=== PATIENT | male | born 2000 | race African-American/Black ===

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

== ENCOUNTER 2022-04-06 16:24 | Emergency (ER) | payer OTHER ==
[2022-04-06] MEDS ORDERED: ALBUTEROL 2.5 MG/3 ML NEB SOL ONE (16:41)
[2022-04-06 17:48] LABS: SARS-COV-2 RT PCR NEGATIVE (NEGATIVE)
--- NOTE | 2022-04-06 18:21 | RAD REPORT ---
EXAM DESCRIPTION: Benjie Single View04/06/2022 5:39 pm CLINICAL HISTORY: sob COMPARISON: 2020 FINDINGS: The lungs appear clear of acute infiltrate. The heart is normal size IMPRESSION: No acute abnormalities displayed
--- NOTE | 2022-04-06 18:24 | EDPHYS ---
Physician Documentation [facility] Name: Diana Schwartz Age: 21 yrs Sex: Male : 2000 Arrival Date: 04/06/2022 Time: 16:28 Bed 14 Private MD: ED Physician Te Boothe HPI: 04/06 16:37 This 21 yrs old Black Male presents to ER via Ambulatory with complaints of Cough, jh7 Congestion, Fever. 16:37 The patient or guardian reports cough, described as moderate, difficulty breathing, flu jh7 symptoms, low-grade fever, myalgias. Onset: The symptoms/episode began/occurred 3 day(s) ago. Associated signs and symptoms: Pertinent positives: fever, rhinorrhea, wheezing, Pertinent negatives: chest pain, sore throat, vomiting. Historical: - Allergies: 16:32 No Known Allergies; hb - Immunization history:: Adult Immunizations up to date. - Social history:: Smoking status: Patient denies any tobacco usage or history of. ROS: 16:37 Constitutional: Negative for fever, chills, and weight loss, Eyes: Negative for injury, jh7 pain, redness, and discharge, Neck: Negative for injury, pain, and swelling, Cardiovascular: Negative for chest pain, palpitations, and edema, Abdomen/GI: Negative for abdominal pain, nausea, vomiting, diarrhea, and constipation, Back: Negative for injury and pain, MS/Extremity: Negative for injury and deformity, Skin: Negative for injury, rash, and discoloration, Neuro: Negative for headache, weakness, numbness, tingling, and seizure. 16:37 ENT: Positive for sinus congestion, Negative for sore throat. 16:37 Respiratory: Positive for cough, shortness of breath, wheezing, inspiratory, expiratory. 16:37 All other systems are negative. Exam: 16:37 Constitutional: This is a well developed, well nourished patient who is awake, alert, jh7 and in no acute distress. Head/Face: Normocephalic, atraumatic. Eyes: Pupils equal round and reactive to light, extra-ocular motions intact. Lids and lashes normal. Conjunctiva and sclera are non-icteric and not injected. Cornea within normal limits. Periorbital areas with no swelling, redness, or edema. Cardiovascular: Regular rate and rhythm with a normal S1 and S2. No gallops, murmurs, or rubs. Normal PMI, no JVD. No pulse deficits. Abdomen/GI: Soft, non-tender, with normal bowel sounds. No distension or tympany. No guarding or rebound. No evidence of tenderness throughout. Back: No spinal tenderness. No costovertebral tenderness. Full range of motion. Skin: Warm, dry with normal turgor. Normal color with no rashes, no lesions, and no evidence of cellulitis. MS/ Extremity: Pulses equal, no cyanosis. Neurovascular intact. Full, normal range of motion. Neuro: Awake and alert, GCS 15, oriented to person, place, time, and situation. Motor strength 5/5 in all extremities. Sensory grossly intact. Normal gait. 16:37 ENT: Nose: nasal drainage, and is seen coming from both nares, that is clear. 16:37 Respiratory: the patient does not display signs of respiratory distress, Respirations: normal, Breath sounds: rhonchi, are heard diffusely, wheezing: is heard diffusely, Respiratory rate: 20 Vital Signs: 16:31 BP 158 / 75; Pulse 69; Resp 20; Temp 98.7(TE); Pulse Ox 100% ; Weight 145.15 kg; Height hb 6 ft. (182.88 cm); Pain 7/10; 16:35 BP 145 / 71; Pulse 72; Pulse Ox 99% on R/A; ko1 16:31 Body Mass Index 43.40 (145.15 kg, 182.88 cm) hb MDM: 16:30 Patient medically screened. [facility] 18:26 Differential Diagnosis: Bronchitis Influenza Pharyngitis Allergic Rhinitis Asthma [facility] Exacerbation Viral Syndrome Pneumonia. Data reviewed: vital signs, nurses notes, radiologic studies, plain films. Data interpreted: Pulse oximetry: is 100 %. Interpretation: normal. Counseling: I had a detailed discussion with the patient and/or guardian regarding: the historical points, exam findings, and any diagnostic results supporting the discharge/admit diagnosis, to return to the emergency department if symptoms worsen or persist or if there are any questions or concerns that arise at home. 04/06 16:36 Order name: COVID-19/FLU A+B; Complete Time: 17:50 [facility] 04/06 16:36 Order name: XRAY Chest (1 view); Complete Time: 18:23 [facility] Administered Medications: 16:49 Drug: Albuterol 2.5 mg Route: Inhalation; ko1 17:11 Drug: Albuterol 2.5 mg Route: Inhalation; ko1 17:36 Drug: Albuterol 2.5 mg Route: Inhalation; ko1 Disposition: 19:24 Co-signature as Attending Physician, Te Boothe MD I agree with the assessment and rt plan of care. Disposition Summary: 04/06/22 18:23 Discharge Ordered Location: Home [facility] Problem: new [facility] Symptoms: have improved [facility] Condition: Stable [facility] Diagnosis - Acute upper respiratory infection, unspecified [facility] Followup: [facility] - With: Private Physician - When: 2 - 3 days - Reason: Recheck today's complaints Discharge Instructions: - Discharge Summary Sheet [facility] - Upper Respiratory Infection, Adult [facility] - Viral Respiratory Infection [facility] Forms: - Medication Reconciliation Form [facility] - Thank You Letter [facility] Prescriptions: - Bromfed DM 2-30-10 mg/5 mL Oral syrup - take 10 milliliter by ORAL route every 4 hours As needed; 240 milliliter; [facility] Refills: 0, Product Selection Permitted - ProAir HFA 90 mcg/actuation Inhalation HFA aerosol inhaler - inhale 2 puff by INHALATION route every 4-6 hours As needed; 1 Inhaler; [facility] Refills: 0, Product Selection Permitted Signatures: Dispatcher [employer] Asiya Marques, RN CIRILO Samia Skaggs, [employer] [facility] Renetta Wilson RN RN ko1 Te Boothe MD MD rt
--- NOTE | 2022-04-06 18:24 | ER ---
Nurse's Notes [facility] Name: Diana Schwartz Age: 21 yrs Sex: Male : 2000 Arrival Date: 04/06/2022 Time: 16:28 Bed 14 Private MD: Diagnosis: Acute upper respiratory infection, unspecified Presentation: 04/06 16:31 Chief complaint: SOB, cough, congestion, nausea, and pain with breathing x 3 days. hb Coronavirus screen: Client presents with at least one sign or symptom that may indicate coronavirus-19. Standard/surgical mask placed on the client. Provider contacted for isolation considerations. Ebola Screen: No symptoms or risks identified at this time. Initial Sepsis Screen: Does the patient meet any 2 criteria? No. Patient's initial sepsis screen is negative. Does the patient have a suspected source of infection? No. Patient's initial sepsis screen is negative. Risk Assessment: Do you want to hurt yourself or someone else? Patient reports no desire to harm self or others. Onset of symptoms was April 03, 2022. 16:31 Method Of Arrival: Ambulatory 16:31 Acuity: ASPEN 4 hb Historical: - Allergies: 16:32 No Known Allergies; hb - Immunization history:: Adult Immunizations up to date. - Social history:: Smoking status: Patient denies any tobacco usage or history of. Screenin:35 Abuse screen: Denies threats or abuse. Denies injuries from another. ko1 16:35 Nutritional screening: No deficits noted. Tuberculosis screening: No symptoms or risk ko1 factors identified. Fall Risk None identified. Assessment: 16:35 General: Appears in no apparent distress. comfortable, Behavior is calm, cooperative, ko1 appropriate for age. Pain: Denies pain. Neuro: No deficits noted. Cardiovascular: Patient's skin is warm and dry. Respiratory: Respiratory effort is even, unlabored, Breath sounds with wheezes bilaterally. GI: No deficits noted. : No deficits noted. EENT: Reports nasal congestion. Derm: No deficits noted. Musculoskeletal: No deficits noted. Vital Signs: 16:31 BP 158 / 75; Pulse 69; Resp 20; Temp 98.7(TE); Pulse Ox 100% ; Weight 145.15 kg; Height hb 6 ft. (182.88 cm); Pain 7/10; 16:35 BP 145 / 71; Pulse 72; Pulse Ox 99% on R/A; ko1 16:31 Body Mass Index 43.40 (145.15 kg, 182.88 cm) ED Course: 16:28 Patient arrived in ED. rg4 16:29 Samia Skaggs FNP is [facility] 7 16:29 Te Boothe MD is Attending Physician. jh7 16:32 Triage completed. hb 16:35 No provider procedures requiring assistance completed. Patient did not have IV access ko1 during this emergency room visit. 16:35 Patient has correct armband on for positive identification. Placed in gown. Bed in low ko1 position. Call light in reach. Side rails up X 1. Pulse ox on. NIBP on. Door closed. Noise minimized. 16:35 Arm band placed on right wrist. ko1 16:38 Renetta Wilson, RN is Primary Nurse. ko1 16:49 COVID-19/FLU A+B Sent. ko1 17:41 XRAY Chest (1 view) In Process Unspecified. EDMS Administered Medications: 16:49 Drug: Albuterol 2.5 mg Route: Inhalation; ko1 17:11 Drug: Albuterol 2.5 mg Route: Inhalation; ko1 17:36 Drug: Albuterol 2.5 mg Route: Inhalation; ko1 Medication: 16:35 VIS not applicable for this client. ko1 Outcome: 18:23 Discharge ordered by . [facility] 18:42 Discharged to home ambulatory, with family. ko1 18:42 Condition: good 18:42 Discharge instructions given to patient, family, Instructed on discharge instructions, follow up and referral plans. medication usage, Demonstrated understanding of instructions, follow-up care, medications, Prescriptions given X 2. 18:43 Patient left the ED. ko1 Signatures: Dispatcher [employer] EDMS Asiya Bains RN RN Vicky Cooper 4 Samia Skaggs FNP [place] [id number] Renetta Wilson, CIRILO RN ko1 Corrections: (The following items were deleted from the chart) 18:42 15:00 Abuse screen: Denies threats or abuse. Denies injuries from another. ko1 ko1
[2022-04-06 19:07] VITALS: TEMP 98.7
[2022-04-06 19:08] VITALS: BP 145/71; O2SAT 99
== END 2022-04-06 18:43 | disposition home or self-care (01) ==
LOC: ER 16:24
DX: J06.9 Acute upper respiratory infection, unspecified (principal); Z20.822 Contact with and (suspected) exposure to COVID-19
CPT/HCPCS: 0240U; 71045; 99284; J7613

== ENCOUNTER 2024-05-26 17:10 | Emergency (ER) | payer OTHER, SELFPAY ==
--- OUTSIDE RECORDS SUMMARY | 2024-05-26 17:14 | XMS REPORT | Continuity of Care Document ---
Author Name Unknown Address [address] [facility] [address] [place] [address] [facility] thconnect Address [address] [place] [address] Care Team Providers Care Marine Insulator Name Role Phone PCP, PATIENT DOES NOT HAVE A Primary Care Physic malina Unavailable ALVIN KINSEY Attending Clinician Unavailable ALVIN KINSEY Attending Clinician Unavailable Alvin Oleary Attending Clinician [phone] DANA REZA Attending Clinician Unavailab Dana Mendoza DO Attending Clinician [phone] Allergies, Adverse Reactions, Alerts Allergy Name Allergy Type Status Severity Reaction(s) Onset Date Inactive Date Treating Clinician Comments Source NO KNOWN ALLERGIE S Drug Class Active [facility] Social History Social Habit Start Date Stop Date Quantity Comments Source Sexual orientation [facility] Sex assigned at 2000 00:00:00 2000 00:00:00 [facility] Smoking Status Start Date Stop Date Source Tobacco smoking consumption unknown [facility] Medications Ordered Medication Name Filled Medication Name Start Date Stop Date Current Medication? Ordering Clinician Indication Dosage Frequency Signature (SIG) Comments Components Source dexamethaso ne sod phos PF injection 10 mg 12-23 02:15: 00 12-23 02:19 :00 No 10mg 10 mg, Intramuscu lar, ONCE, 1 dose, On Fri12/23/23 at 2115, 1 mL [facility] ibuprofen (IBU) tablet 800 mg 12-23 02:15: 00 12-23 02:19 :00 No 800mg 800 mg, Oral, ONCE, 1 dose, On Fri12/23/23 at 2115, JUANA [facility] ondansetron 4 mg disintegrat ing tablet 12-22 00:00: 00 Yes [id number] 4mg Take 1 tablet by mouth every 8 (eight) hours as needed for Nausea and Vomiting (N/V). [facility] ibuprofen 800 mg tablet 12-22 00:00: 00 Yes [id number] 800mg Take 1 tablet by mouth 3 (three) times daily as needed for Pain (scale 4-6). [facility] albuterol 90 mcg/actuati on inhaler 09-17 00:00: 00 Yes [id number] 2{puff} Inhale 2 Puffs every 4 (four) hours as needed for Wheezing or Shortness of Breath. [facility] Vital Signs Vital Name Observation Time Observation Value Comments S ource Systolic blood pressure 2023-12-24 03:34:00 142 mm[Hg] [facility] Diastolic blood pressure 2023-12-24 03:34:00 83 mm[Hg] [facility] Body temperature 2023-12-24 03:34:00 36.67 Lora [facility] Respiratory rate 2023-12-24 03:34:00 15 /min [facility] Oxygen saturation in Arterial blood by Pulse oximetry 2023-12-24 03:34:00 100 /min [facility] Heart rate 2023-12-24 01:58:00 91 /min [facility] Body height 2023-12-24 01:58:00 182.9 cm [facility] Body weight 2023-12-24 01:58:00 169.192 kg [facility] BMI 2023-12-24 01:58:00 50.59 kg/m2 [facility] Systolic blood pressure 2023-09-18 16:49:00 123 mm[Hg] [facility] Diastolic blood pressure 2023-09-18 16:49:00 70 mm[Hg] [facility] Heart rate 2023-09-18 16:49:00 77 /min [facility] Body temperature 2023-09-18 16:49:00 36.89 Lora [facility] Respiratory rate 2023-09-18 16:49:00 16 /min [facility] Body height 2023-09-18 16:49:00 182.9 cm [facility] Body weight 2023-09-18 16:49:00 158.759 kg [facility] BMI 2023-09-18 16:49:00 47.47 kg/m2 [facility] Oxygen saturation in Arterial blood by Pulse oximetry 2023-09-18 16:49:00 100 /min [facility] Procedures Procedure Date / Time Performed Performing Clinicia n Source RAPID STREP SCREEN FOR GROUP A 2023-12-24 02:24:00 Alvin Kinsey [facility] INFLUENZA A/B RSV COVID NAAT 2023-12-24 02:24:00 Alvin Kinsey [facility] Encounters Start Date/Time End Date/Time Encounter Type Admission Type Attending Clinicians Care Facility Care Department Encounter ID Source 2023-12-23 21:01:00 2023-12-23 23:17:00 Emergency ALVIN JARAMILLO [facility] ERT [id number] [facility] 2023-12-23 21:01:00 2023-12-23 23:17:00 Emergency Alvin Kinsey [facility] [id number] [facility] 2023-09-18 11:51:00 2023-09-18 12:20:00 Emergency DANA WYNN [facility] ERT [id number] [facility] 2023-09-18 11:51:00 2023-09-18 12:20:00 Emergency Dana Reza [facility] [id number] [facility]
[2024-05-26 18:06] LABS: SARS-CoV-2 Antigen CONTROL BLUE LINE VIS/BG OK; SARS-CoV-2 Antigen Rapid Res Negative (Negative)
--- NOTE | 2024-05-26 18:16 | ER ---
Nurse's Notes [facility] Name: Diana Schwartz Age: 23 yrs Sex: Male : 2000 Arrival Date: 05/26/2024 Time: 17:10 Bed 16 Private MD: Diagnosis: Acute upper respiratory infection, unspecified Presentation: 05/26 17:34 Coronavirus screen: Client denies travel out of the [place] in the last 14 days. Ebola tm6 Screen: Patient negative for fever greater than or equal to 101.5 degrees Fahrenheit, and additional compatible Ebola Virus Disease symptoms Patient denies exposure to infectious person. Patient denies travel to an Ebola-affected area in the 21 days before illness onset. No symptoms or risks identified at this time. 17:34 Method Of Arrival: Ambulatory tm6 17:35 Chief complaint: Patient states: cough, congestion, runny nose, chills, sore throat, tm6 since last night. 17:36 Initial Sepsis Screen: Does the patient meet any 2 criteria? No. Patient's initial tm6 sepsis screen is negative. Does the patient have a suspected source of infection? No. Patient's initial sepsis screen is negative. Risk Assessment: Do you want to hurt yourself or someone else? Patient reports no desire to harm self or others. Onset of symptoms was May 24, 2024. 17:36 Acuity: ASPEN 4 tm6 Triage Assessment: 17:36 General: Appears in no apparent distress. uncomfortable, Behavior is calm, cooperative. tm6 Pain: Complains of pain in throat Pain currently is 10 out of 10 on a pain scale. EENT: Reports difficulty swallowing nasal congestion nasal discharge pain when swallowing. Neuro: Level of Consciousness is awake, alert, obeys commands, Oriented to person, place, time, situation. Cardiovascular: Patient's skin is warm and dry. Respiratory: Airway is patent Respiratory effort is even, unlabored, Respiratory pattern is regular, symmetrical. GI: No signs and/or symptoms were reported involving the gastrointestinal system. Abdomen is round non-distended. : No signs and/or symptoms were reported regarding the genitourinary system. Derm: No signs and/or symptoms reported regarding the dermatologic system. Musculoskeletal: No signs and/or symptoms reported regarding the musculoskeletal system. Historical: - Allergies: 17:35 No Known Allergies; tm6 - PMHx: 17:35 None; tm6 - PSHx: 17:35 None; tm6 - Immunization history:: Flu vaccine is not up to date. - Infectious Disease History:: Denies. - Social history:: Smoking status: Patient denies any tobacco usage or history of. Screenin:[address] [facility] ED Fall Risk Assessment (Adult) History of falling in the last 3 months, bp including since admission No falls in past 3 months (0 pts) Confusion or Disorientation No (0 pts) Intoxicated or Sedated No (0 pts) Impaired Gait No (0 pts) Mobility Assist Device Used No (0 pt) Altered Elimination No (0 pt) Score/Fall Risk Level 0 - 2 = Low Risk Oriented to surroundings. Abuse screen: Denies threats or abuse. Denies injuries from another. Nutritional screening: No deficits noted. Tuberculosis screening: No symptoms or risk factors identified. Vital Signs: 17:36 BP 142 / 90; Pulse 69; Resp 17; Temp 97.5(O); Pulse Ox 100% on R/A; MAP 105 mmHg; tm6 Weight 140.61 kg; Height 6 ft. 0 in. ; Pain 10/10; 17:36 Body Mass Index 42.04 (140.61 kg, 182.88 cm) tm6 17:36 Pain Scale: Adult tm6 ED Course: 17:15 Patient arrived in ED. sj2 17:18 Jessica Macias FNP-C is [facility]. kb 17:18 Heraclio Holt MD is Attending Physician. kb 17:34 Arm band placed on right wrist. tm6 17:38 Triage completed. tm6 17:43 Flu Sent. tm6 17:43 SARS-COV-2 Antigen Rapid Sent. tm6 17:43 Strep Sent. tm6 18:26 Patient has correct armband on for positive identification. bp 18:26 Provided Education on: NA. bp 18:26 No provider procedures requiring assistance completed. Patient did not have IV access bp during this emergency room visit. Administered Medications: 18:25 Drug: Dexamethasone IM 10 mg IM once Route: IM; Site: right deltoid; bp 18:25 Follow up: Response: No adverse reaction bp Medication: 18:26 VIS not applicable for this client. bp Outcome: 18:15 Discharge ordered by . kb 18:26 Discharged to home ambulatory, bp 18:26 Condition: stable 18:26 Discharge instructions given to patient, Instructed on discharge instructions, follow up and referral plans. medication usage, Demonstrated understanding of instructions, follow-up care, medications, Prescriptions given X 1, 18:27 Patient left the ED. bp Signatures: Jessica Macias, LEAD SYSTEMS ARCHITECT-C LEAD SYSTEMS ARCHITECT-Jaron Nava RN RN Efra De Leon RN RN 6 Flaquito Bailey 2
--- NOTE | 2024-05-26 18:16 | EDPHYS ---
Physician Documentation [facility] Name: Diana Schwartz Age: 23 yrs Sex: Male : 2000 Arrival Date: 05/26/2024 Time: 17:10 Bed 16 Private MD: ED Physician Heraclio Holt HPI: 05/26 17:33 This 23 yrs old Black Male presents to ER via Unassigned with complaints of UPPER kb RESPIRATORY ISSUES. 17:33 Pt is a 23 year old male who presents for cough, congestion, runny nose, sore throat, kb chills that started last night. Unknown fever. No aggravating or alleviating factors. . Historical: - Allergies: 17:35 No Known Allergies; tm6 - PMHx: 17:35 None; tm6 - PSHx: 17:35 None; tm6 - Immunization history:: Flu vaccine is not up to date. - Infectious Disease History:: Denies. - Social history:: Smoking status: Patient denies any tobacco usage or history of. ROS: 17:33 Constitutional: As per HPI kb Exam: 17:33 Constitutional: This is a well developed, well nourished patient who is awake, alert, kb and in no acute distress. Head/Face: Normocephalic, atraumatic. ENT: Moist Mucous membranes Cardiovascular: Regular rate Respiratory: Respirations even and unlabored. No increased work of breathing. Talking in full sentences Skin: Warm, dry with normal turgor. Normal color. MS/ Extremity: Pulses equal, no cyanosis. Neurovascular intact. Full, normal range of motion. Neuro: Awake and alert, GCS 15, oriented to person, place, time, and situation. 17:51 ENT: Posterior pharynx: Tonsils: bilaterally enlarged, with erythema, kb 17:52 Respiratory: Breath sounds: are clear throughout, kb Vital Signs: 17:36 BP 142 / 90; Pulse 69; Resp 17; Temp 97.5(O); Pulse Ox 100% on R/A; MAP 105 mmHg; tm6 Weight 140.61 kg; Height 6 ft. 0 in. ; Pain 10/10; 17:36 Body Mass Index 42.04 (140.61 kg, 182.88 cm) tm6 17:36 Pain Scale: Adult 6 MDM: 17:18 Medical Screening Exam initiated kb 18:12 Differential diagnosis: Flu, COVID, URI, strep, tonsillitis, pharyngitis. Data kb reviewed: vital signs, nurses notes. I considered the following discharge prescriptions or medication management in the emergency department I discussed and recommended Over The Counter medications, Antibiotics: At this time antibiotics are not recommended, Antivirals: At this time, antivirals are not recommended. Test considered but Not performed: X-ray: CXR considered but lungs clear bilaterally, resp even and unlabored. . Counseling: I had a detailed discussion with the patient and/or guardian regarding the historical points, exam findings, and any diagnostic results supporting the discharge/admit diagnosis, lab results, the need for outpatient follow up, a family practitioner, to return to the emergency department if symptoms worsen or persist or if there are any questions or concerns that arise at home. 05/26 17:36 Order name: Flu; Complete Time: 18:11 kb 05/26 17:36 Order name: SARS-COV-2 Antigen Rapid; Complete Time: 18:11 kb 05/26 17:36 Order name: Strep; Complete Time: 18:11 kb 05/26 18:05 Order name: Throat Culture EDMS Administered Medications: 18:25 Drug: Dexamethasone IM 10 mg IM once Route: IM; Site: right deltoid; bp 18:25 Follow up: Response: No adverse reaction bp Disposition Summary: 05/26/24 18:15 Discharge Ordered Notes: Location: Home kb Condition: Stable kb Diagnosis - Acute upper respiratory infection, unspecified kb Followup: kb - With: Emergency Department - When: As needed - Reason: Worsening of condition Followup: kb - With: Private Physician - When: 2 - 3 days - Reason: Recheck today's complaints, Continuance of care, Re-evaluation by your physician Discharge Instructions: - Discharge Summary Sheet kb - Upper Respiratory Infection, Adult, [id number] kb Forms: - Medication Reconciliation Form kb - Antibiotic Education kb - Prescription Opioid Use kb - Patient Portal Instructions kb - Leadership Thank You Letter kb Prescriptions: - Tessalon Perles 100 mg Oral Capsule - take 1 capsule ORAL route every 8 hours As needed; 15 capsule; Refills: 0, kb Product Selection Permitted Signatures: Dispatcher [employer] EDJessica Gross FNP-C FNP-Ckb Peltier, Brian RN RN bp Jovita, Tawney, RN RN tm6
[2024-05-26] MEDS ORDERED: dexAMETHasone 10 MG/ML VIAL ONE (18:20)
[2024-05-26 18:33] VITALS: BP 142/90; TEMP 97.5; O2SAT 100
== END 2024-05-26 18:27 | disposition home or self-care (01) ==
LOC: ER 17:10
DX: J06.9 Acute upper respiratory infection, unspecified (principal); Z11.52 Encounter for screening for COVID-19
CPT/HCPCS: 36415; 87070; 87081; 87804; 87811; 96372; 99284; J1100